=== PATIENT | female | born 2000 | race Hispanic/Latino ===

== ENCOUNTER 2020-08-03 13:24 | Emergency (ER) | payer SELFPAY | END 2020-08-03 15:01 | disposition home or self-care (01) | LOC: CSHERS 13:24 | DX: J02.9 Acute pharyngitis, unspecified (principal) | CPT/HCPCS: 87081; 87430; 99283 ==

== ENCOUNTER 2022-01-15 14:10 | Emergency (ER) | payer SELFPAY | END 2022-01-15 15:13 | disposition home or self-care (01) | LOC: CSHERS 14:10 | DX: J06.9 Acute upper respiratory infection, unspecified (principal) | CPT/HCPCS: 71045 ==

== ENCOUNTER 2022-04-15 03:27 | Emergency (ER) | payer SELFPAY ==
[2022-04-15] MEDS ORDERED: Acetaminophen 500 MG TAB ONE (04:54)
[2022-04-15] MEDS ORDERED: Ibuprofen 200 MG TAB ONE (04:54)
[2022-04-15] MEDS ORDERED: Ketorolac Tromethamine 30 MG/ML VIAL ONE (05:30)
[2022-04-15 06:15] LABS: SARS-CoV-2 NAA Rapid Test Not Detected (NotDetected)
== END 2022-04-15 06:25 | disposition home or self-care (01) ==
LOC: CSHERS 03:27
DX: J10.1 Influenza due to other identified influenza virus with other respiratory manifestations (principal); Z20.822 Contact with and (suspected) exposure to COVID-19
CPT/HCPCS: 96372; 99284; J1885

== ENCOUNTER 2024-09-21 19:40 | Emergency (ER) | payer BC, SELFPAY ==
[2024-09-21] MEDS ORDERED: Ketorolac Tromethamine 30 MG (1 mL) VIAL ONE (21:17)
[2024-09-21] MEDS ORDERED: Ondansetron ODT 4 MG TAB ONE (21:17)
[2024-09-21 21:26] LABS: #Basophils Less than 0.03 10x3/uL (0.0-0.2); #Eosinophils 0.21 10x3/uL (0.0-0.5); #Monocytes 0.44 10x3/uL (0.0-1.1); #Neutrophils 3.82 10x3/uL (1.5-8.4); %Basophils 0.3 % (0.0-2.0); %Eosinophils 2.9 % (0.0-6.0); %Lymphocytes 37.3 % (18.0-47.0); %Monocytes 6.1 % (0.0-10.0); %Neutrophils 53.3 % (40.0-75.0); Hematocrit 37.4 % (34.9-44.5); Hemoglobin 12.6 g/dL (12.0-15.5); Mean Corpuscular HGB CONC 33.7 g/dL (32.0-36.0); Mean Corpuscular Hemoglobin 29.2 pg (27.0-33.0); Mean Corpuscular Volume 86.8 fL (81.6-98.3); Platelet Count 374 10x3/uL (150-450); RBC Distribution Width 13.3 % (11.5-14.5); Red Blood Cell (RBC) Count 4.31 10x6/uL (3.90-5.03); White Blood Cell (WBC) Count 7.18 10x3/uL (3.5-10.5)
[2024-09-21 21:38] LABS: BHCG - Serum Negative (NEGATIVE); Pregs Control Background? CLEAR/WHITE (CLR/WHITE); Pregs Control Bar Appear? YES (CONTROL BAR)
[2024-09-21 21:42] LABS: ALT (SGPT) 152 U/L (Less than 34); AST (SGOT) 112 U/L (11-34); Albumin 3.9 g/dL (3.1-4.5); Alkaline Phosphatase 106 U/L (40-110); Anion Gap 15 mmol/L (10-20); BUN (Urea Nitrogen) 12 mg/dL (7.0-18.7); Bilirubin, Total 0.2 mg/dL (0.3-1.2); Calc. Creatinine Clearance 0 mL/min (70-130); Calcium 9.5 mg/dL (7.8-10.44); Carbon Dioxide 24 mmol/L (22-29); Chloride 107 mmol/L (98-107); Estimated GFR 124; Globulin 4.1 g/dL (2.4-3.5); Glucose 104 mg/dL (70-105); Potassium 4.4 mmol/L (3.5-5.1); Sodium 142 mmol/L (136-145)
== END 2024-09-21 22:45 | disposition home or self-care (01) ==
LOC: CSHERS 19:40
DX: R51.9 Headache, unspecified (principal); R55 Syncope and collapse
CPT/HCPCS: 36415; 80053; 84703; 85025; 93005; 96372; 99284; J1885; Q0162